=== PATIENT | female | born 1950 | race Hispanic/Latino ===

== ENCOUNTER 2022-05-12 09:46 | Inpatient (IN) | payer MEDICARE, OTHER ==
[~2022-05-12] VITALS: Ht 154.9 cm; Wt 81.6 kg
[2022-05-12] VITALS (22 sets, daily range): BP systolic 90–214; BP diastolic 51–88
[~2022-05-12 09:46] MED LIST: KETAMINE HCL 100 MG/ML 5ML VIAL IJ ONE
[2022-05-12] MEDS ORDERED: SUCCINYLCHOLINE 200MG/10ML SYR ONE (10:29)
[2022-05-12] MEDS ORDERED: HEPARIN 10,000 UNIT/10ML (1,000 UNIT/ML) VIAL ONE ×2 (10:29→12:10)
[2022-05-12] MEDS ORDERED: FENTANYL CITRATE PF 50 MCG/1 ML 5ML AMP IV ONE (10:29)
[2022-05-12] MEDS ORDERED: NITROGLYCERIN 50MG VIAL ONE (10:29)
[2022-05-12] MEDS ORDERED: PROPOFOL 10 MG/ML 20ML VIAL IV ONE ×2 (10:29→10:41)
[2022-05-12] MEDS ORDERED: MIDAZOLAM HCL 1 MG/ML 2ML VIAL ONE (10:29)
[2022-05-12] MEDS ORDERED: IOHEXOL 350 MG/ML 100ML INFUS..BTL IV ONE (10:29)
[2022-05-12] MEDS ORDERED: HEPARIN 1,000 UNIT VIAL ONE (10:29)
[2022-05-12] MEDS ORDERED: ROCURONIUM 10MG/1ML SYR 10 MG/ML ML ONE (10:29)
[2022-05-12] MEDS ORDERED: EPINEPHRINE PF 1MG (1:1,000) 10 MG in 0.9% NACL 250ML 240 ML IV PRN (10:30)
[2022-05-12] MEDS ORDERED: AMINOCAPROIC ACID 5,000MG VIAL 15,000 MG in 0.9% NACL 500ML IV.SOLN 420 ML IV PRN (10:30)
[2022-05-12] MEDS ORDERED: NOREPINEPHRINE BITARTRATE 8 MG in 0.9% NACL 250ML 250 ML IV PRN (10:30)
[2022-05-12] MEDS ORDERED: ONDANSETRON 4MG INJ ONE (10:34)
[2022-05-12] MEDS ORDERED: ROCURONIUM BROMIDE 10MG/1ML 5ML VL ONE ×4 (10:41→14:41)
[2022-05-12] MEDS ORDERED: MORPHINE 4 MG SYG IM PRN (11:00)
[2022-05-12] MEDS ORDERED: VASOPRESSIN 20 UNITS/ML 1ML VIAL ONE (11:00)
[2022-05-12] MEDS ORDERED: ONDANSETRON 4MG INJ IVP PRN (11:00)
[2022-05-12] MEDS ORDERED: MORPHINE 2 MG SYG IVP PRN (11:00)
[2022-05-12] MEDS ORDERED: ACETAMINOPHEN 325 MG TAB PO PRN (11:00)
[2022-05-12] MEDS ORDERED: ACETAMINOPHEN 650 MG SUPPOSITORY RC PRN (11:00)
[2022-05-12] MEDS ORDERED: CEFAZOLIN SODIUM 1 GM VIAL ONE ×2 (11:02→14:09)
[2022-05-12 11:09] LABS: HEMATOCRIT 28.4 % (36-48); MEAN CORPUSCULAR HEMOGLOBIN 27.7 pg (27.0-33.0); MEAN CORPUSCULAR HGB CONC 33.1 g/dL (32.0-36.0); MEAN CORPUSCULAR VOLUME 83.8 fL (79-99); RED BLOOD CELL COUNT(AUTO) 3.39 MIL/uL (4.00-5.50); RED CELL DISTRIBUTION WIDTH 15.5 % (11.0-15.5); WHITE BLOOD COUNT (AUTO) 17.8 K/uL (4.8-10.8)
[2022-05-12 11:19] LABS: ALBUMIN 2.3 g/dL (3.5-5.0); CREATININE 1.3 mg/dL (0.5-1.5); POTASSIUM 3.6 mmol/L (3.5-5.1); TOTAL PROTEIN, SERUM 4.8 g/dL (6.0-8.3)
[2022-05-12] MEDS ORDERED: SODIUM BICARB 50MEQ 50ML VIAL 50 ML ONE ×7 (11:22→18:21)
[2022-05-12 11:24] LABS: ABG BASE EXCESS -19.7 mmol/L (-2.0-3.0); ABG HCO3 9.7 mmol/L (21.0-28.0); ABG PCO2 36 mmHg (32-45)
[2022-05-12 11:47] LABS: INR 1.09 (0.85-1.15); PROTHROMBIN TIME 11.8 SEC (9.6-11.6)
[2022-05-12 11:48] LABS: PARTIAL THROMBOPLASTIN TIME 52.1 SEC (26.3-35.5)
[2022-05-12 11:56] LABS: ABG BASE EXCESS -9.4 mmol/L (-2.0-3.0); ABG HCO3 17.9 mmol/L (21.0-28.0); ABG OXYGEN SATURATION 98.9 % (95.0-99.0); ABG PCO2 45 mmHg (32-45)
[2022-05-12 12:28] LABS: ABG BASE EXCESS -0.9 mmol/L (-2.0-3.0); ABG HCO3 22.5 mmol/L (21.0-28.0); ABG OXYGEN SATURATION 98.7 % (95.0-99.0); ABG PCO2 32 mmHg (32-45)
[2022-05-12] MEDS ORDERED: FENTANYL CITRATE PF 50 MCG/1 ML 2ML VIAL ONE ×2 (13:20→14:43)
[2022-05-12 13:27] LABS: ABG BASE EXCESS -6.7 mmol/L (-2.0-3.0); ABG HCO3 18.9 mmol/L (21.0-28.0); ABG PCO2 38 mmHg (32-45)
[2022-05-12] MEDS ORDERED: MORPHINE 5 MG/ML VIAL (5MG OR GREATER DOSE) IV PRN (14:00)
[2022-05-12] MEDS ORDERED: DEXTROSE 50%-WATER 50 ML DISP.SYRIN IV PRN (14:00)
[2022-05-12] MEDS ORDERED: 0.9%NACL 1000ML 1,000 ML IV SCH (14:00)
[2022-05-12] MEDS ORDERED: GLUCAGON 1MG KIT 1 MG ML IM PRN (14:00)
[2022-05-12] MEDS ORDERED: NITROGLYCERIN 50MG/D5W 250ML 250 BOT IV SCH (14:00)
[2022-05-12] MEDS ORDERED: LIDOCAINE HCL-MPF 1% 2ML VIAL IV PRN (14:00)
[2022-05-12] MEDS ORDERED: NOREPINEPHRIN 4MG/NS 250ML 250 ML IV SCH (14:00)
[2022-05-12] MEDS ORDERED: PROTAMINE SULFATE 10 MG/ML 25ML VIAL IV ONE (14:19)
[2022-05-12 14:43] LABS: ABG BASE EXCESS -3.6 mmol/L (-2.0-3.0); ABG HCO3 23.3 mmol/L (21.0-28.0); ABG OXYGEN SATURATION 98.8 % (95.0-99.0); ABG PCO2 50 mmHg (32-45)
[2022-05-12] MEDS ORDERED: NITROGLYCERIN 1GM OINT 1 INCH/1GM TD ONE (15:00)
[2022-05-12] MEDS: NITROGLYCERIN 1GM OINT 1 INCH/1GM TD SCH ×2 (15:30→20:35)
[2022-05-12] MEDS ORDERED: PROPOFOL 1000 MG/100 ML IV PRN (15:30)
[2022-05-12] MEDS ORDERED: FENTANYL 2500MCG+NS 250ML IV.SOLN IV SCH (15:30)
[2022-05-12] MEDS ORDERED: PROPOFOL 1000 MG/100 ML 100 ML IV ONE (15:35)
[2022-05-12] MEDS ORDERED: FENTANYL 2500MCG+NS 250ML 250 ML IV ONE (15:35)
[2022-05-12 15:54] LABS: BASOPHILS % (AUTO) 0.4 % (0.0-5.0); EOSINOPHILS % (AUTO) 0.5 % (0.0-8.0); LYMPHOCYTES % (AUTO) 11.1 % (21.0-51.0); MEAN CORPUSCULAR HEMOGLOBIN 28.2 pg (27.0-33.0); MEAN CORPUSCULAR HGB CONC 35.9 g/dL (32.0-36.0); MEAN CORPUSCULAR VOLUME 78.6 fL (79-99); MONOCYTES % (AUTO) 7.9 % (3.0-13.0); NEUTROPHILS % (AUTO) 75.9 % (40.0-77.0); PLATELET COUNT (AUTO) 124 K/uL (130-400); RED BLOOD CELL COUNT(AUTO) 3.69 MIL/uL (4.00-5.50); RED CELL DISTRIBUTION WIDTH 14.6 % (11.0-15.5); WHITE BLOOD COUNT (AUTO) 18.6 K/uL (4.8-10.8)
[2022-05-12 16:15] LABS: ALBUMIN 1.9 g/dL (3.5-5.0); CREATININE 1.2 mg/dL (0.5-1.5); MAGNESIUM 1.5 mg/dL (1.80-2.40); POTASSIUM 3.8 mmol/L (3.5-5.1)
[2022-05-12] MEDS: INSULIN HUMULIN R 100 UNIT/ML 3ML SQ SCH ×2 (16:30→20:36)
[2022-05-12 16:34] LABS: ABG BASE EXCESS -2.1 mmol/L (-2.0-3.0); ABG HCO3 21.2 mmol/L (21.0-28.0); ABG OXYGEN SATURATION 98.5 % (95.0-99.0); ABG PCO2 32 mmHg (32-45)
[2022-05-12] MEDS ORDERED: SODIUM BICARB 50MEQ 50ML VIAL IV STA (17:58)
[2022-05-12] MEDS ORDERED: CALCIUM GLUC 1GM/10ML VIAL ONE (18:22)
[2022-05-12 18:23] LABS: INR 1.1 (0.85-1.15); PROTHROMBIN TIME 11.9 SEC (9.6-11.6)
[2022-05-12 18:24] LABS: PARTIAL THROMBOPLASTIN TIME 27.6 SEC (26.3-35.5)
[2022-05-12] MEDS ORDERED: CALCIUM GLUC 1GM 1 GM in 0.9%NACL 100ML 100 ML IV ONE (18:45)
[2022-05-12] MEDS: CLOPIDOGREL 75MG TAB PO SCH (20:34)
[2022-05-12] MEDS: CEFAZOLIN SODIUM 1 GM VIAL IVP SCH (20:34)
[2022-05-12] MEDS: ASPIRIN 81 MG EC TAB PO SCH (20:34)
[2022-05-12 20:43] LABS: ABG HCO3 25.9 mmol/L (21.0-28.0); ABG OXYGEN SATURATION 98.6 % (95.0-99.0); ABG PCO2 34 mmHg (32-45)
[2022-05-12 20:57] LABS: HEMATOCRIT 33.9 % (36-48)
[2022-05-12] MEDS ORDERED: POTASSIUM CHLORIDE 20MEQ/100ML 100 ML IV PRN (22:00)
[2022-05-12] MEDS: POTASSIUM CHLORIDE 20MEQ/100ML 100 ML IV PRN (22:05)
[2022-05-12] MEDS ORDERED: 0.9%NACL 50ML IV SCH (23:00)
[2022-05-12] MEDS: CALCIUM GLUC 1GM/10ML VIAL IVPB SCH (23:27)
[2022-05-13] VITALS (118 sets, daily range): BP systolic 0–167; BP diastolic 0–69
[2022-05-13] MEDS: POTASSIUM CHLORIDE 20MEQ/100ML 100 ML IV PRN ×3 (00:09→17:58)
[2022-05-13 01:00] LABS: HEMATOCRIT 32.7 % (36-48); MEAN CORPUSCULAR HEMOGLOBIN 28.3 pg (27.0-33.0); MEAN CORPUSCULAR HGB CONC 36.4 g/dL (32.0-36.0); MEAN CORPUSCULAR VOLUME 77.9 fL (79-99); RED BLOOD CELL COUNT(AUTO) 4.2 MIL/uL (4.00-5.50); RED CELL DISTRIBUTION WIDTH 14.6 % (11.0-15.5); WHITE BLOOD COUNT (AUTO) 19.3 K/uL (4.8-10.8)
[2022-05-13 01:19] LABS: ABG BASE EXCESS -2.7 mmol/L (-2.0-3.0); ABG HCO3 20.1 mmol/L (21.0-28.0); ABG OXYGEN SATURATION 98.2 % (95.0-99.0); ABG PCO2 29 mmHg (32-45)
[2022-05-13] MEDS ORDERED: CALCIUM GLUC 1GM 1 GM in 0.9%NACL 50ML 50 ML IV PRN (01:30)
[2022-05-13] MEDS ORDERED: SODIUM BICARB 50MEQ 50ML VIAL IV PRN (01:30)
[2022-05-13] MEDS: CALCIUM GLUC 1GM/10ML VIAL IVPB SCH ×3 (01:41→11:42)
[2022-05-13 02:29] LABS: ABG BASE EXCESS 3.5 mmol/L (-2.0-3.0); ABG HCO3 26.9 mmol/L (21.0-28.0); ABG OXYGEN SATURATION 97.9 % (95.0-99.0); ABG PCO2 37 mmHg (32-45)
[2022-05-13] MEDS: CEFAZOLIN SODIUM 1 GM VIAL IVP SCH (02:33)
[2022-05-13] MEDS: NITROGLYCERIN 1GM OINT 1 INCH/1GM TD SCH ×4 (03:18→20:32)
[2022-05-13 03:47] LABS: BASOPHILS % (AUTO) 0.2 % (0.0-5.0); HEMATOCRIT 32.5 % (36-48); LYMPHOCYTES % (AUTO) 11.2 % (21.0-51.0); MEAN CORPUSCULAR HGB CONC 36.3 g/dL (32.0-36.0); MONOCYTES % (AUTO) 8.7 % (3.0-13.0); NEUTROPHILS % (AUTO) 78.9 % (40.0-77.0); NUCLEATED RED BLOOD CELLS 0.1 % (0.0-0.19); PLATELET COUNT (AUTO) 176 K/uL (130-400); RED BLOOD CELL COUNT(AUTO) 4.22 MIL/uL (4.00-5.50); RED CELL DISTRIBUTION WIDTH 14.6 % (11.0-15.5); WHITE BLOOD COUNT (AUTO) 18.9 K/uL (4.8-10.8)
[2022-05-13 03:59] LABS: ALBUMIN 2.4 g/dL (3.5-5.0); CREATININE 1.6 mg/dL (0.5-1.5); MAGNESIUM 1.7 mg/dL (1.80-2.40); PHOSPHORUS 4.7 mg/dL (2.5-4.9); POTASSIUM 4.4 mmol/L (3.5-5.1); TOTAL PROTEIN, SERUM 5.2 g/dL (6.0-8.3)
[2022-05-13 04:02] LABS: PROTHROMBIN TIME 10.9 SEC (9.6-11.6)
[2022-05-13 04:03] LABS: PARTIAL THROMBOPLASTIN TIME 22.5 SEC (26.3-35.5)
[2022-05-13] MEDS ORDERED: ALBUMIN (HUMAN) 5% 250 ML IV ONE (04:07)
[2022-05-13] MEDS ORDERED: ALBUMIN (HUMAN) 5% 500 ML IV SCH (04:30)
[2022-05-13] MEDS: MAGNESIUM 2GM PREMIX 50ML 50 ML IV PRN (06:27)
[2022-05-13] MEDS: INSULIN HUMULIN R 100 UNIT/ML 3ML SQ SCH ×4 (06:37→20:32)
[2022-05-13 07:01] LABS: ABG BASE EXCESS 3.8 mmol/L (-2.0-3.0); ABG HCO3 26.8 mmol/L (21.0-28.0); ABG OXYGEN SATURATION 95.7 % (95.0-99.0); ABG PCO2 35 mmHg (32-45)
[2022-05-13] MEDS ORDERED: FUROSEMIDE 40MG VIAL ONE (07:14)
[2022-05-13] MEDS ORDERED: FUROSEMIDE 20MG VIAL IV SCH (08:00)
[2022-05-13 08:35] LABS: CHOLESTEROL 118 mg/dL (<200); HDL CHOLESTEROL 34 mg/dL (35-85); LDL DIRECT 57 mg/dL (0-99); TRIGLYCERIDES 283 mg/dL (30-200)
[2022-05-13] MEDS: ASPIRIN 81 MG EC TAB PO SCH (08:35)
[2022-05-13] MEDS: PANTOPRAZOLE 40 MG/VIAL IVP SCH (08:35)
[2022-05-13] MEDS ORDERED: ASPIRIN 81 MG EC TAB PO SCH (09:00)
[2022-05-13] MEDS ORDERED: ATORVASTATIN 40 MG TABLET PO SCH (10:00)
[2022-05-13 10:08] LABS: ABG BASE EXCESS 6.1 mmol/L (-2.0-3.0); ABG HCO3 29.5 mmol/L (21.0-28.0); ABG OXYGEN SATURATION 95.1 % (95.0-99.0); ABG PCO2 38 mmHg (32-45)
[2022-05-13] MEDS ORDERED: METF500S9 PO (10:51)
[2022-05-13] MEDS ORDERED: ATOR40TA71 PO (10:54)
[2022-05-13] MEDS: ONDANSETRON 4MG INJ IV PRN ×2 (11:42→17:58)
[2022-05-13] MEDS ORDERED: SODIUM CHLORIDE 3% FOR INHALATION 4 ML/AMP VIAL.NEB IH ONE (12:03)
[2022-05-13 12:09] LABS: ABG BASE EXCESS 8.3 mmol/L (-2.0-3.0); ABG HCO3 31.8 mmol/L (21.0-28.0); ABG OXYGEN SATURATION 96.3 % (95.0-99.0); ABG PCO2 40 mmHg (32-45)
[2022-05-13] MEDS: ZOSYN 3.375GM +NS 50ML IV SCH (14:30)
[2022-05-13 14:40] LABS: MAGNESIUM 2.3 mg/dL (1.80-2.40); POTASSIUM 3.6 mmol/L (3.5-5.1)
[2022-05-13] MEDS ORDERED: TRAMADOL HCL 50 MG TABLET PO SCH (15:30)
[2022-05-13] MEDS: 0.9%NACL 1000ML 1,000 ML IV SCH (15:51)
[2022-05-13] MEDS: MORPHINE 4 MG SYG IV PRN ×2 (18:50→23:31)
[2022-05-13] MEDS ORDERED: TRAMADOL HCL 50 MG TABLET PO PRN (19:00)
[2022-05-13] MEDS: ATORVASTATIN 40 MG TABLET PO SCH (20:16)
[2022-05-13] MEDS: CLOPIDOGREL 75MG TAB PO SCH (20:16)
[2022-05-14] VITALS (99 sets, daily range): BP systolic 115–191; BP diastolic 43–67
[2022-05-14] MEDS: 0.9%NACL 1000ML 1,000 ML IV SCH ×2 (01:06→11:00)
[2022-05-14] MEDS: ZOSYN 3.375GM +NS 50ML IV SCH ×2 (01:06→14:02)
[2022-05-14] MEDS ORDERED: SODIUM CHLORIDE 3% FOR INHALATION 4 ML/AMP VIAL.NEB IH ONE ×2 (02:25→06:33)
[2022-05-14] MEDS: HYDRALAZINE 20MG/ML VIAL IV PRN (03:50)
[2022-05-14] MEDS: NITROGLYCERIN 1GM OINT 1 INCH/1GM TD SCH ×4 (03:50→22:21)
[2022-05-14] MEDS ORDERED: ACETAMINOPHEN 325 MG TAB PO PRN (04:00)
[2022-05-14 04:32] LABS: BASOPHILS % (AUTO) 0.2 % (0.0-5.0); HEMATOCRIT 22.7 % (36-48); MEAN CORPUSCULAR HGB CONC 34.4 g/dL (32.0-36.0); MEAN CORPUSCULAR VOLUME 81.4 fL (79-99); MONOCYTES % (AUTO) 8.1 % (3.0-13.0); NEUTROPHILS % (AUTO) 82.8 % (40.0-77.0); PLATELET COUNT (AUTO) 119 K/uL (130-400); RED BLOOD CELL COUNT(AUTO) 2.79 MIL/uL (4.00-5.50); RED CELL DISTRIBUTION WIDTH 15.6 % (11.0-15.5); WHITE BLOOD COUNT (AUTO) 19.2 K/uL (4.8-10.8)
[2022-05-14 04:45] LABS: ALBUMIN 2.6 g/dL (3.5-5.0); CREATININE 1.2 mg/dL (0.5-1.5); MAGNESIUM 2.2 mg/dL (1.80-2.40); POTASSIUM 3.4 mmol/L (3.5-5.1); TOTAL PROTEIN, SERUM 5.4 g/dL (6.0-8.3)
[2022-05-14] MEDS ORDERED: FUROSEMIDE 40MG VIAL IV STA (05:11)
[2022-05-14] MEDS: POTASSIUM CHLORIDE 20MEQ/100ML 100 ML IV PRN (05:26)
[2022-05-14] MEDS: ESMOLOL HCL 2500 MG/NACL 250 ML IV PRN ×2 (07:21→12:05)
[2022-05-14] MEDS: INSULIN HUMULIN R 100 UNIT/ML 3ML SQ SCH ×4 (07:30→21:00)
[2022-05-14] MEDS ORDERED: LIDOCAINE HCL 1% 20 ML VIAL ONE (07:39)
[2022-05-14] MEDS ORDERED: NITROGLYCERIN 50MG VIAL ONE (07:39)
[2022-05-14] MEDS ORDERED: IODIXANOL 320 MG/ML 100 ML VIAL ONE (07:39)
[2022-05-14] MEDS ORDERED: MEPERIDINE-PF 25 MG/ML SYG ONE (07:40)
[2022-05-14] MEDS ORDERED: MIDAZOLAM HCL 1 MG/ML 2ML VIAL ONE (07:40)
[2022-05-14 07:45] LABS: ABG BASE EXCESS 5.5 mmol/L (-2.0-3.0); ABG HCO3 29.7 mmol/L (21.0-28.0); ABG OXYGEN SATURATION 98.3 % (95.0-99.0); ABG PCO2 42 mmHg (32-45)
[2022-05-14] MEDS ORDERED: IOHEXOL 350 MG/ML 100ML INFUS..BTL IV ONE (08:48)
[2022-05-14] MEDS ORDERED: ENOXAPARIN SODIUM 30 MG/0.3 ML SQ SCH (09:00)
[2022-05-14] MEDS: ASPIRIN 81 MG EC TAB PO SCH (09:00)
[2022-05-14 10:01] LABS: BASOPHILS % (AUTO) 0.2 % (0.0-5.0); HEMATOCRIT 25.6 % (36-48); MEAN CORPUSCULAR HEMOGLOBIN 28.6 pg (27.0-33.0); MEAN CORPUSCULAR HGB CONC 35.2 g/dL (32.0-36.0); MEAN CORPUSCULAR VOLUME 81.3 fL (79-99); MONOCYTES % (AUTO) 8.5 % (3.0-13.0); NEUTROPHILS % (AUTO) 82.8 % (40.0-77.0); PLATELET COUNT (AUTO) 111 K/uL (130-400); RED BLOOD CELL COUNT(AUTO) 3.15 MIL/uL (4.00-5.50); RED CELL DISTRIBUTION WIDTH 15.6 % (11.0-15.5); WHITE BLOOD COUNT (AUTO) 17.1 K/uL (4.8-10.8)
[2022-05-14] MEDS: PANTOPRAZOLE 40 MG/VIAL IVP SCH (10:02)
[2022-05-14] MEDS: FUROSEMIDE 20MG VIAL IV SCH ×2 (10:03→22:15)
[2022-05-14 10:17] LABS: INR 1.05 (0.85-1.15); PROTHROMBIN TIME 11.4 SEC (9.6-11.6)
[2022-05-14 10:18] LABS: PARTIAL THROMBOPLASTIN TIME 31.8 SEC (26.3-35.5)
[2022-05-14 13:11] LABS: ABG BASE EXCESS 5.5 mmol/L (-2.0-3.0); ABG HCO3 30.5 mmol/L (21.0-28.0); ABG OXYGEN SATURATION 96.6 % (95.0-99.0); ABG PCO2 47 mmHg (32-45)
[2022-05-14 15:40] LABS: HEMATOCRIT 25.2 % (36-48)
[2022-05-14] MEDS ORDERED: ASPIRIN 81MG CHEW TAB PO ONE (22:00)
[2022-05-14] MEDS ORDERED: METOPROLOL TARTRATE 50 MG TAB PO ONE (22:00)
[2022-05-14] MEDS: ATORVASTATIN 40 MG TABLET PO SCH (22:11)
[2022-05-14] MEDS: CLOPIDOGREL 75MG TAB PO SCH (22:11)
[2022-05-14] MEDS: KCL 20 MEQ ERTAB PO PRN (22:21)
[2022-05-14 22:38] LABS: MAGNESIUM 2.4 mg/dL (1.80-2.40); POTASSIUM 3.5 mmol/L (3.5-5.1)
[2022-05-15] VITALS (99 sets, daily range): BP systolic 85–174; BP diastolic 40–112
[2022-05-15] MEDS: ZOSYN 3.375GM +NS 50ML IV SCH ×3 (00:42→16:08)
[2022-05-15 04:46] LABS: HEMATOCRIT 24.4 % (36-48); MEAN CORPUSCULAR HEMOGLOBIN 28.3 pg (27.0-33.0); MEAN CORPUSCULAR VOLUME 83.3 fL (79-99); RED BLOOD CELL COUNT(AUTO) 2.93 MIL/uL (4.00-5.50); RED CELL DISTRIBUTION WIDTH 15.7 % (11.0-15.5); WHITE BLOOD COUNT (AUTO) 17.1 K/uL (4.8-10.8)
[2022-05-15 05:08] LABS: ALBUMIN 2.4 g/dL (3.5-5.0); MAGNESIUM 2.2 mg/dL (1.80-2.40); PHOSPHORUS 2.7 mg/dL (2.5-4.9); POTASSIUM 3.4 mmol/L (3.5-5.1)
[2022-05-15] MEDS: NITROGLYCERIN 1GM OINT 1 INCH/1GM TD SCH ×4 (05:22→21:25)
[2022-05-15] MEDS: ESMOLOL HCL 2500 MG/NACL 250 ML IV PRN ×3 (06:14→18:24)
[2022-05-15] MEDS: INSULIN HUMULIN R 100 UNIT/ML 3ML SQ SCH ×4 (06:22→21:00)
[2022-05-15] MEDS: METOPROLOL TARTRATE 50 MG TAB PO SCH ×2 (08:45→21:03)
[2022-05-15] MEDS: FUROSEMIDE 20MG VIAL IV SCH ×2 (08:45→21:03)
[2022-05-15] MEDS: PANTOPRAZOLE 40 MG/VIAL IVP SCH (08:45)
[2022-05-15] MEDS: ASPIRIN 81 MG EC TAB PO SCH (08:45)
[2022-05-15] MEDS ORDERED: LISINOPRIL 10 MG TABLET PO SCH (09:00)
[2022-05-15] MEDS: POTASSIUM CHLORIDE 10% ELIXIR 20 MEQ/15 ML UDCUP PO PRN (10:47)
[2022-05-15] MEDS: AMLODIPINE 5 MG TAB PO SCH (10:47)
[2022-05-15] MEDS: HYDRALAZINE 20MG/ML VIAL IV PRN (14:05)
[2022-05-15 18:08] LABS: HEMATOCRIT 24.3 % (36-48)
[2022-05-15 20:35] LABS: MAGNESIUM 2.3 mg/dL (1.80-2.40); POTASSIUM 3.3 mmol/L (3.5-5.1)
[2022-05-15] MEDS: ATORVASTATIN 40 MG TABLET PO SCH (21:03)
[2022-05-15] MEDS: CLOPIDOGREL 75MG TAB PO SCH (21:04)
[2022-05-15] MEDS: POTASSIUM CHLORIDE 20MEQ/100ML 100 ML IV PRN ×2 (21:24→23:46)
[2022-05-16] VITALS (67 sets, daily range): BP systolic 107–184; BP diastolic 36–160
[2022-05-16] MEDS: ZOSYN 3.375GM +NS 50ML IV SCH ×3 (01:11→16:31)
[2022-05-16 03:56] LABS: HEMATOCRIT 25.9 % (36-48); MEAN CORPUSCULAR HEMOGLOBIN 27.8 pg (27.0-33.0); RED BLOOD CELL COUNT(AUTO) 3.16 MIL/uL (4.00-5.50); RED CELL DISTRIBUTION WIDTH 15.5 % (11.0-15.5)
[2022-05-16 04:13] LABS: ALBUMIN 2.4 g/dL (3.5-5.0); CREATININE 0.9 mg/dL (0.5-1.5); MAGNESIUM 2.3 mg/dL (1.80-2.40); PHOSPHORUS 2.6 mg/dL (2.5-4.9); POTASSIUM 3.3 mmol/L (3.5-5.1); TOTAL PROTEIN, SERUM 6.4 g/dL (6.0-8.3)
[2022-05-16] MEDS: HYDRALAZINE 20MG/ML VIAL IV PRN ×3 (04:36→23:53)
[2022-05-16] MEDS: NITROGLYCERIN 1GM OINT 1 INCH/1GM TD SCH ×4 (05:46→22:38)
[2022-05-16] MEDS: ESMOLOL HCL 2500 MG/NACL 250 ML IV PRN (06:43)
[2022-05-16] MEDS: INSULIN HUMULIN R 100 UNIT/ML 3ML SQ SCH ×4 (07:30→20:50)
[2022-05-16] MEDS: POTASSIUM CHLORIDE 20MEQ/100ML 100 ML IV PRN ×5 (09:18→23:53)
[2022-05-16] MEDS: ASPIRIN 81 MG EC TAB PO SCH (09:18)
[2022-05-16] MEDS: LISINOPRIL 10 MG TABLET PO SCH ×2 (09:18→20:50)
[2022-05-16] MEDS: AMLODIPINE 5 MG TAB PO SCH (09:18)
[2022-05-16] MEDS: METOPROLOL TARTRATE 50 MG TAB PO SCH ×2 (09:18→20:50)
[2022-05-16] MEDS: PANTOPRAZOLE 40 MG TAB DR PO SCH (09:19)
[2022-05-16] MEDS ORDERED: ALBUTEROL 0.083% 2.5 MG/3 ML INH IH PRN (10:00)
[2022-05-16] MEDS: FUROSEMIDE 20MG VIAL IV SCH (16:42)
[2022-05-16 17:07] LABS: HEMATOCRIT 28.1 % (36-48)
[2022-05-16] MEDS ORDERED: DICYCLOMINE HCL 20 MG TAB PO PRN (18:30)
[2022-05-16] MEDS: CLOPIDOGREL 75MG TAB PO SCH (20:49)
[2022-05-16] MEDS: ATORVASTATIN 40 MG TABLET PO SCH (20:50)
[2022-05-17] VITALS (65 sets, daily range): BP systolic 113–187; BP diastolic 41–71
[2022-05-17] MEDS: ZOSYN 3.375GM +NS 50ML IV SCH ×3 (01:08→16:22)
[2022-05-17] MEDS: FUROSEMIDE 20MG VIAL IV SCH ×3 (01:08→16:24)
[2022-05-17] MEDS: NITROGLYCERIN 1GM OINT 1 INCH/1GM TD SCH (03:42)
[2022-05-17 05:13] LABS: HEMATOCRIT 28.1 % (36-48); MEAN CORPUSCULAR HEMOGLOBIN 28.1 pg (27.0-33.0); MEAN CORPUSCULAR HGB CONC 33.8 g/dL (32.0-36.0); MEAN CORPUSCULAR VOLUME 83.1 fL (79-99); RED BLOOD CELL COUNT(AUTO) 3.38 MIL/uL (4.00-5.50); RED CELL DISTRIBUTION WIDTH 16.1 % (11.0-15.5); WHITE BLOOD COUNT (AUTO) 11.4 K/uL (4.8-10.8)
[2022-05-17 05:30] LABS: ALBUMIN 2.3 g/dL (3.5-5.0); CREATININE 0.9 mg/dL (0.5-1.5); MAGNESIUM 2.3 mg/dL (1.80-2.40); PHOSPHORUS 2.6 mg/dL (2.5-4.9); POTASSIUM 3.2 mmol/L (3.5-5.1); TOTAL PROTEIN, SERUM 6.7 g/dL (6.0-8.3)
[2022-05-17] MEDS: POTASSIUM CHLORIDE 20MEQ/100ML 100 ML IV PRN ×2 (05:51→08:34)
[2022-05-17] MEDS: INSULIN HUMULIN R 100 UNIT/ML 3ML SQ SCH ×4 (06:13→20:40)
[2022-05-17] MEDS: PANTOPRAZOLE 40 MG TAB DR PO SCH (08:35)
[2022-05-17] MEDS: AMLODIPINE 5 MG TAB PO SCH (08:35)
[2022-05-17] MEDS: METOPROLOL TARTRATE 50 MG TAB PO SCH ×2 (08:35→20:39)
[2022-05-17] MEDS: LISINOPRIL 10 MG TABLET PO SCH ×2 (08:35→20:39)
[2022-05-17] MEDS: ASPIRIN 81 MG EC TAB PO SCH (08:35)
[2022-05-17] MEDS: CLOPIDOGREL 75MG TAB PO SCH (20:38)
[2022-05-17] MEDS: ATORVASTATIN 40 MG TABLET PO SCH (20:38)
[2022-05-17] MEDS: BALSAM PERU/CASTOR OIL 60 GM TUBE TP SCH (20:41)
[2022-05-18] VITALS (7 sets, daily range): BP systolic 104–171; BP diastolic 49–97
[2022-05-18] MEDS: FUROSEMIDE 20MG VIAL IV SCH ×3 (00:59→16:30)
[2022-05-18] MEDS: ZOSYN 3.375GM +NS 50ML IV SCH ×3 (00:59→16:27)
[2022-05-18 03:50] LABS: BASOPHILS % (AUTO) 0.2 % (0.0-5.0); EOSINOPHILS % (AUTO) 0.4 % (0.0-8.0); HEMATOCRIT 28.7 % (36-48); MEAN CORPUSCULAR HEMOGLOBIN 28.1 pg (27.0-33.0); MEAN CORPUSCULAR HGB CONC 34.1 g/dL (32.0-36.0); MEAN CORPUSCULAR VOLUME 82.2 fL (79-99); MONOCYTES % (AUTO) 11.5 % (3.0-13.0); NEUTROPHILS % (AUTO) 78.3 % (40.0-77.0); PLATELET COUNT (AUTO) 257 K/uL (130-400); RED BLOOD CELL COUNT(AUTO) 3.49 MIL/uL (4.00-5.50); RED CELL DISTRIBUTION WIDTH 16.2 % (11.0-15.5); WHITE BLOOD COUNT (AUTO) 12.4 K/uL (4.8-10.8)
[2022-05-18 04:02] LABS: ALBUMIN 2.3 g/dL (3.5-5.0); CREATININE 0.8 mg/dL (0.5-1.5); MAGNESIUM 2.2 mg/dL (1.80-2.40); PHOSPHORUS 2.6 mg/dL (2.5-4.9); POTASSIUM 3.4 mmol/L (3.5-5.1); TOTAL PROTEIN, SERUM 6.7 g/dL (6.0-8.3)
[2022-05-18] MEDS: KCL 20 MEQ ERTAB PO PRN ×2 (05:45→08:59)
[2022-05-18] MEDS: INSULIN HUMULIN R 100 UNIT/ML 3ML SQ SCH ×4 (05:54→21:00)
[2022-05-18] MEDS: ASPIRIN 81 MG EC TAB PO SCH (08:58)
[2022-05-18] MEDS: METOPROLOL TARTRATE 50 MG TAB PO SCH ×2 (08:58→20:32)
[2022-05-18] MEDS: PANTOPRAZOLE 40 MG TAB DR PO SCH (08:59)
[2022-05-18] MEDS: LISINOPRIL 10 MG TABLET PO SCH ×2 (08:59→20:32)
[2022-05-18] MEDS: AMLODIPINE 5 MG TAB PO SCH (08:59)
[2022-05-18] MEDS: BALSAM PERU/CASTOR OIL 60 GM TUBE TP SCH ×3 (09:07→20:43)
[2022-05-18 17:54] LABS: APPEARANCE,URINE CLEAR (CLEAR); BILIRUBIN,URINE NEGATIVE (NEGATIVE); COLOR,URINE COLORLESS (YELLOW); GLUCOSE, URINE (UA) NEGATIVE (NEGATIVE); KETONES,URINE NEGATIVE (NEGATIVE); LEUKOCYTE ESTERASE ,URINE NEGATIVE Leu/uL (NEGATIVE); NITRATE,URINE NEGATIVE (NEGATIVE); PROTEIN,URINE NEGATIVE (NEGATIVE); UROBILINOGEN,URINE 0.2 mg/dL (0.2-1.0)
[2022-05-18 18:09] LABS: WBC,URINE 0-1 /HPF (0-1)
[2022-05-18] MEDS: ATORVASTATIN 40 MG TABLET PO SCH (20:31)
[2022-05-18] MEDS: AMITRIPTYLINE 25 MG TABLET PO SCH (20:31)
[2022-05-18] MEDS: CLOPIDOGREL 75MG TAB PO SCH (20:32)
[2022-05-19] MEDS: ZOSYN 3.375GM +NS 50ML IV SCH ×3 (00:32→16:55)
[2022-05-19] MEDS: FUROSEMIDE 20MG VIAL IV SCH ×3 (00:32→16:55)
[2022-05-19 03:26] VITALS: BP 125/64
[2022-05-19 04:50] LABS: BASOPHILS % (AUTO) 0.2 % (0.0-5.0); EOSINOPHILS % (AUTO) 0.2 % (0.0-8.0); HEMATOCRIT 28.9 % (36-48); LYMPHOCYTES % (AUTO) 9.4 % (21.0-51.0); MEAN CORPUSCULAR HEMOGLOBIN 27.6 pg (27.0-33.0); MEAN CORPUSCULAR HGB CONC 33.6 g/dL (32.0-36.0); MEAN CORPUSCULAR VOLUME 82.3 fL (79-99); MONOCYTES % (AUTO) 11.9 % (3.0-13.0); NEUTROPHILS % (AUTO) 77.2 % (40.0-77.0); PLATELET COUNT (AUTO) 288 K/uL (130-400); RED BLOOD CELL COUNT(AUTO) 3.51 MIL/uL (4.00-5.50); RED CELL DISTRIBUTION WIDTH 16.1 % (11.0-15.5); WHITE BLOOD COUNT (AUTO) 17.9 K/uL (4.8-10.8)
[2022-05-19 05:07] LABS: ALBUMIN 2.2 g/dL (3.5-5.0); CREATININE 0.8 mg/dL (0.5-1.5); POTASSIUM 3.1 mmol/L (3.5-5.1); TOTAL PROTEIN, SERUM 6.6 g/dL (6.0-8.3)
[2022-05-19] MEDS: KCL 20 MEQ ERTAB PO PRN (05:59)
[2022-05-19] MEDS: INSULIN HUMULIN R 100 UNIT/ML 3ML SQ SCH ×4 (07:17→21:00)
[2022-05-19 08:00] VITALS: BP 152/61
[2022-05-19] MEDS: METOPROLOL TARTRATE 50 MG TAB PO SCH ×2 (08:31→20:20)
[2022-05-19] MEDS: KCL 20 MEQ ERTAB PO SCH ×2 (08:31→11:52)
[2022-05-19] MEDS: POLYETHYLENE GLYCOL 3350 17 GM POWD.PACK PO SCH (08:32)
[2022-05-19] MEDS: LISINOPRIL 10 MG TABLET PO SCH ×2 (08:32→20:19)
[2022-05-19] MEDS: AMLODIPINE 5 MG TAB PO SCH (08:32)
[2022-05-19] MEDS: ASPIRIN 81 MG EC TAB PO SCH (08:32)
[2022-05-19] MEDS: PANTOPRAZOLE 40 MG TAB DR PO SCH (08:32)
[2022-05-19] MEDS: BALSAM PERU/CASTOR OIL 60 GM TUBE TP SCH ×3 (08:33→20:20)
[2022-05-19 11:08] VITALS: BP 100/63
[2022-05-19 16:00] VITALS: BP 118/46
[2022-05-19 17:42] LABS: MAGNESIUM 2.4 mg/dL (1.80-2.40); POTASSIUM 3.9 mmol/L (3.5-5.1)
[2022-05-19] MEDS: AMITRIPTYLINE 25 MG TABLET PO SCH (20:20)
[2022-05-19] MEDS: CLOPIDOGREL 75MG TAB PO SCH (20:20)
[2022-05-19] MEDS: ATORVASTATIN 40 MG TABLET PO SCH (20:20)
[2022-05-19 20:44] VITALS: BP 132/52
[2022-05-20 00:13] VITALS: BP 119/61
[2022-05-20] MEDS: ZOSYN 3.375GM +NS 50ML IV SCH ×3 (02:16→16:04)
[2022-05-20] MEDS: FUROSEMIDE 20MG VIAL IV SCH ×3 (02:17→16:04)
[2022-05-20 04:00] LABS: BASOPHILS % (AUTO) 0.2 % (0.0-5.0); EOSINOPHILS % (AUTO) 0.6 % (0.0-8.0); HEMATOCRIT 28.7 % (36-48); LYMPHOCYTES % (AUTO) 10.3 % (21.0-51.0); MEAN CORPUSCULAR HGB CONC 33.8 g/dL (32.0-36.0); MEAN CORPUSCULAR VOLUME 82.7 fL (79-99); MONOCYTES % (AUTO) 12.5 % (3.0-13.0); NEUTROPHILS % (AUTO) 74.9 % (40.0-77.0); PLATELET COUNT (AUTO) 368 K/uL (130-400); RED BLOOD CELL COUNT(AUTO) 3.47 MIL/uL (4.00-5.50); RED CELL DISTRIBUTION WIDTH 16.3 % (11.0-15.5); WHITE BLOOD COUNT (AUTO) 17.5 K/uL (4.8-10.8)
[2022-05-20 04:03] VITALS: BP 120/54
[2022-05-20 04:09] LABS: CREATININE 0.8 mg/dL (0.5-1.5); MAGNESIUM 2.4 mg/dL (1.80-2.40)
[2022-05-20] MEDS: INSULIN HUMULIN R 100 UNIT/ML 3ML SQ SCH ×4 (07:30→21:00)
[2022-05-20] MEDS: ASPIRIN 81 MG EC TAB PO SCH (08:13)
[2022-05-20] MEDS: PANTOPRAZOLE 40 MG TAB DR PO SCH (08:13)
[2022-05-20] MEDS: POLYETHYLENE GLYCOL 3350 17 GM POWD.PACK PO SCH (08:13)
[2022-05-20] MEDS: AMLODIPINE 5 MG TAB PO SCH (08:16)
[2022-05-20] MEDS: BALSAM PERU/CASTOR OIL 60 GM TUBE TP SCH ×3 (08:16→21:02)
[2022-05-20] MEDS: LISINOPRIL 10 MG TABLET PO SCH ×2 (08:17→21:01)
[2022-05-20] MEDS: METOPROLOL TARTRATE 50 MG TAB PO SCH ×2 (08:17→21:01)
[2022-05-20 08:30] VITALS: BP 142/71
[2022-05-20 09:56] LABS: INR 0.94 (0.85-1.15); PROTHROMBIN TIME 10.3 SEC (9.6-11.6)
[2022-05-20 12:18] VITALS: BP 113/52
[2022-05-20 16:30] VITALS: BP 146/68
[2022-05-20] MEDS: AMITRIPTYLINE 25 MG TABLET PO SCH (21:01)
[2022-05-20] MEDS: CLOPIDOGREL 75MG TAB PO SCH (21:01)
[2022-05-20] MEDS: ATORVASTATIN 40 MG TABLET PO SCH (21:01)
[2022-05-20] MEDS: ONDANSETRON 4MG INJ IV PRN (21:16)
[2022-05-20 21:36] VITALS: BP 142/64
[2022-05-21 00:50] VITALS: BP 137/69
[2022-05-21] MEDS: ZOSYN 3.375GM +NS 50ML IV SCH ×3 (02:13→16:29)
[2022-05-21] MEDS: FUROSEMIDE 20MG VIAL IV SCH (02:14)
[2022-05-21 04:33] VITALS: BP 116/93
[2022-05-21 05:41] LABS: BASOPHILS % (AUTO) 0.2 % (0.0-5.0); EOSINOPHILS % (AUTO) 0.5 % (0.0-8.0); HEMATOCRIT 28.9 % (36-48); LYMPHOCYTES % (AUTO) 6.7 % (21.0-51.0); MEAN CORPUSCULAR HEMOGLOBIN 27.9 pg (27.0-33.0); MEAN CORPUSCULAR HGB CONC 34.3 g/dL (32.0-36.0); MEAN CORPUSCULAR VOLUME 81.4 fL (79-99); MONOCYTES % (AUTO) 9.1 % (3.0-13.0); NEUTROPHILS % (AUTO) 82.6 % (40.0-77.0); PLATELET COUNT (AUTO) 475 K/uL (130-400); RED BLOOD CELL COUNT(AUTO) 3.55 MIL/uL (4.00-5.50); RED CELL DISTRIBUTION WIDTH 16.2 % (11.0-15.5); WHITE BLOOD COUNT (AUTO) 19.4 K/uL (4.8-10.8)
[2022-05-21 06:02] LABS: ALBUMIN 2.2 g/dL (3.5-5.0); CREATININE 1.6 mg/dL (0.5-1.5); POTASSIUM 3.8 mmol/L (3.5-5.1); TOTAL PROTEIN, SERUM 6.8 g/dL (6.0-8.3)
[2022-05-21] MEDS: INSULIN HUMULIN R 100 UNIT/ML 3ML SQ SCH ×4 (06:21→20:33)
[2022-05-21 08:00] VITALS: BP 144/67
[2022-05-21] MEDS: POLYETHYLENE GLYCOL 3350 17 GM POWD.PACK PO SCH (09:38)
[2022-05-21] MEDS: PANTOPRAZOLE 40 MG TAB DR PO SCH (09:39)
[2022-05-21] MEDS: METOPROLOL TARTRATE 50 MG TAB PO SCH ×2 (09:39→20:34)
[2022-05-21] MEDS: ASPIRIN 81 MG EC TAB PO SCH (09:39)
[2022-05-21] MEDS: LISINOPRIL 10 MG TABLET PO SCH ×2 (09:39→20:34)
[2022-05-21] MEDS: BALSAM PERU/CASTOR OIL 60 GM TUBE TP SCH ×3 (09:39→20:35)
[2022-05-21] MEDS: AMLODIPINE 5 MG TAB PO SCH (09:39)
[2022-05-21 11:23] VITALS: BP 154/56
[2022-05-21 16:06] VITALS: BP 118/45
[2022-05-21] MEDS: ONDANSETRON 4MG INJ IV PRN (18:17)
[2022-05-21] MEDS: CLOPIDOGREL 75MG TAB PO SCH (20:34)
[2022-05-21] MEDS: ATORVASTATIN 40 MG TABLET PO SCH (20:35)
[2022-05-21 21:42] VITALS: BP 141/60
[2022-05-22 00:14] VITALS: BP 124/53
[2022-05-22] MEDS: ZOSYN 3.375GM +NS 50ML IV SCH ×2 (00:54→08:06)
[2022-05-22 04:16] VITALS: BP 131/57
[2022-05-22 04:41] LABS: HEMATOCRIT 27.1 % (36-48); MEAN CORPUSCULAR HEMOGLOBIN 27.5 pg (27.0-33.0); MEAN CORPUSCULAR HGB CONC 33.9 g/dL (32.0-36.0); MEAN CORPUSCULAR VOLUME 81.1 fL (79-99); RED BLOOD CELL COUNT(AUTO) 3.34 MIL/uL (4.00-5.50); RED CELL DISTRIBUTION WIDTH 15.9 % (11.0-15.5); WHITE BLOOD COUNT (AUTO) 20.8 K/uL (4.8-10.8)
[2022-05-22 05:06] LABS: ALBUMIN 2.1 g/dL (3.5-5.0); MAGNESIUM 2.6 mg/dL (1.80-2.40); POTASSIUM 3.7 mmol/L (3.5-5.1); TOTAL PROTEIN, SERUM 6.6 g/dL (6.0-8.3)
[2022-05-22] MEDS ORDERED: 0.9% NACL 500ML IV.SOLN 500 ML IV SCH (06:00)
[2022-05-22] MEDS: INSULIN HUMULIN R 100 UNIT/ML 3ML SQ SCH ×4 (06:35→21:19)
[2022-05-22] MEDS: ASPIRIN 81 MG EC TAB PO SCH (08:06)
[2022-05-22] MEDS: POLYETHYLENE GLYCOL 3350 17 GM POWD.PACK PO SCH (08:06)
[2022-05-22] MEDS: AMLODIPINE 5 MG TAB PO SCH (08:06)
[2022-05-22] MEDS: PANTOPRAZOLE 40 MG TAB DR PO SCH (08:06)
[2022-05-22] MEDS: BALSAM PERU/CASTOR OIL 60 GM TUBE TP SCH ×3 (08:07→21:19)
[2022-05-22 08:09] VITALS: BP 155/69
[2022-05-22 10:57] VITALS: BP 129/54
[2022-05-22] MEDS: CEFEPIME HCL 2 GM VIAL IVP SCH ×2 (11:12→21:17)
[2022-05-22] MEDS: METOPROLOL TARTRATE 50 MG TAB PO SCH ×2 (11:13→21:18)
[2022-05-22] MEDS: 0.9%NACL 1000ML 1,000 ML IV SCH (14:02)
[2022-05-22 16:20] VITALS: BP 142/47
[2022-05-22 16:42] LABS: APPEARANCE,URINE CLEAR (CLEAR); BILIRUBIN,URINE NEGATIVE (NEGATIVE); COLOR,URINE YELLOW (YELLOW); GLUCOSE, URINE (UA) NEGATIVE (NEGATIVE); KETONES,URINE NEGATIVE (NEGATIVE); LEUKOCYTE ESTERASE ,URINE NEGATIVE Leu/uL (NEGATIVE); NITRATE,URINE NEGATIVE (NEGATIVE); OCCULT BLOOD,URINE LARGE (NEGATIVE); PROTEIN,URINE NEGATIVE (NEGATIVE); UROBILINOGEN,URINE 0.2 mg/dL (0.2-1.0)
[2022-05-22 16:46] LABS: CHLORIDE,URINE RANDOM 25 mmol/L (110-250); CREATININE,URINE RANDOM 41 mg/dL (30-135); POTASSIUM,URINE RANDOM 34 mmol/L (25-125); SODIUM,URINE RANDOM 28 mmol/l (40-220)
[2022-05-22 16:47] LABS: BACTERIA,URINE RARE /HPF (None Seen); MUCUS,URINE RARE LPF (None Seen); RBC,URINE 51-100 /HPF (0-1); SQUAMOUS EPITHELIAL CELL,UR RARE /HPF (0-2)
[2022-05-22 18:44] VITALS: BP 122/78
[2022-05-22] MEDS: METRONIDAZOLE 500MG/100ML BAG 100 ML IVPB SCH (21:17)
[2022-05-22] MEDS: ATORVASTATIN 40 MG TABLET PO SCH (21:18)
[2022-05-22] MEDS: CLOPIDOGREL 75MG TAB PO SCH (21:18)
[2022-05-23] VITALS (7 sets, daily range): BP systolic 114–150; BP diastolic 54–82
[2022-05-23] MEDS: 0.9%NACL 1000ML 1,000 ML IV SCH ×2 (02:20→10:40)
[2022-05-23 04:06] LABS: HEMATOCRIT 25.9 % (36-48); MEAN CORPUSCULAR HEMOGLOBIN 27.7 pg (27.0-33.0); MEAN CORPUSCULAR VOLUME 81.4 fL (79-99); PLATELET COUNT (AUTO) 515 K/uL (130-400); RED BLOOD CELL COUNT(AUTO) 3.18 MIL/uL (4.00-5.50); RED CELL DISTRIBUTION WIDTH 16.4 % (11.0-15.5)
[2022-05-23 04:31] LABS: ALBUMIN 1.9 g/dL (3.5-5.0); MAGNESIUM 2.6 mg/dL (1.80-2.40); POTASSIUM 3.3 mmol/L (3.5-5.1); TOTAL PROTEIN, SERUM 6.3 g/dL (6.0-8.3)
[2022-05-23 04:42] LABS: EOSINOPHILS % (MANUAL) 4 % (1-6); LYMPHOCYTES % (MANUAL) 9 % (22-44); MAN.DIFF COMMENT-IMPRESSION MANUAL DIFFERENTIAL; MONOCYTES % (MANUAL) 9 % (2-9); PLATELET MORPHOLOGY COMMENT INCREASED; SEGMENTED NEUTROPHILS % 78 % (40-70)
[2022-05-23 04:52] LABS: % IRON SATURATION 32.1 % (22-44)
[2022-05-23] MEDS: INSULIN HUMULIN R 100 UNIT/ML 3ML SQ SCH ×5 (05:57→21:03)
[2022-05-23] MEDS: KCL 20 MEQ ERTAB PO PRN (06:00)
[2022-05-23] MEDS: METRONIDAZOLE 500MG/100ML BAG 100 ML IVPB SCH ×3 (06:00→21:04)
[2022-05-23] MEDS: POLYETHYLENE GLYCOL 3350 17 GM POWD.PACK PO SCH (08:58)
[2022-05-23] MEDS: PANTOPRAZOLE 40 MG TAB DR PO SCH (08:59)
[2022-05-23] MEDS: METOPROLOL TARTRATE 50 MG TAB PO SCH ×2 (08:59→21:04)
[2022-05-23] MEDS: ASPIRIN 81 MG EC TAB PO SCH (08:59)
[2022-05-23] MEDS: Vitamin B Complex/Vit C/Folic Acid PO SCH (08:59)
[2022-05-23] MEDS: AMLODIPINE 5 MG TAB PO SCH (08:59)
[2022-05-23] MEDS: CEFEPIME HCL 2 GM VIAL IVP SCH ×2 (09:00→21:04)
[2022-05-23] MEDS: BALSAM PERU/CASTOR OIL 60 GM TUBE TP SCH ×3 (09:26→21:05)
[2022-05-23] MEDS ORDERED: LOPERAMIDE HCL 2 MG CAP PO SCH (16:30)
[2022-05-23] MEDS: POTASSIUM CHLORIDE 10% ELIXIR 20 MEQ/15 ML UDCUP PO PRN (16:38)
[2022-05-23 16:53] LABS: CREATININE 0.9 mg/dL (0.5-1.5); POTASSIUM 4.2 mmol/L (3.5-5.1); TOTAL PROTEIN, SERUM 6.9 g/dL (6.0-8.3)
[2022-05-23] MEDS: ATORVASTATIN 40 MG TABLET PO SCH (21:04)
[2022-05-23] MEDS: CLOPIDOGREL 75MG TAB PO SCH (21:04)
[2022-05-24] VITALS (7 sets, daily range): BP systolic 124–156; BP diastolic 50–64
[2022-05-24 03:58] LABS: HEMATOCRIT 25.3 % (36-48); MEAN CORPUSCULAR HEMOGLOBIN 27.8 pg (27.0-33.0); MEAN CORPUSCULAR HGB CONC 33.6 g/dL (32.0-36.0); MEAN CORPUSCULAR VOLUME 82.7 fL (79-99); RED BLOOD CELL COUNT(AUTO) 3.06 MIL/uL (4.00-5.50); RED CELL DISTRIBUTION WIDTH 16.6 % (11.0-15.5); WHITE BLOOD COUNT (AUTO) 15.8 K/uL (4.8-10.8)
[2022-05-24 04:18] LABS: ALBUMIN 1.9 g/dL (3.5-5.0); CREATININE 0.7 mg/dL (0.5-1.5); MAGNESIUM 2.3 mg/dL (1.80-2.40); POTASSIUM 3.9 mmol/L (3.5-5.1); TOTAL PROTEIN, SERUM 5.9 g/dL (6.0-8.3)
[2022-05-24] MEDS: 0.9%NACL 1000ML 1,000 ML IV SCH ×2 (04:47→14:10)
[2022-05-24] MEDS: INSULIN HUMULIN R 100 UNIT/ML 3ML SQ SCH ×4 (05:48→20:02)
[2022-05-24] MEDS: METRONIDAZOLE 500MG/100ML BAG 100 ML IVPB SCH ×3 (05:52→21:25)
[2022-05-24] MEDS: AMLODIPINE 5 MG TAB PO SCH (08:22)
[2022-05-24] MEDS: METOPROLOL TARTRATE 50 MG TAB PO SCH ×2 (08:22→21:25)
[2022-05-24] MEDS: PANTOPRAZOLE 40 MG TAB DR PO SCH (08:22)
[2022-05-24] MEDS: CEFEPIME HCL 2 GM VIAL IVP SCH ×2 (08:22→21:24)
[2022-05-24] MEDS: Vitamin B Complex/Vit C/Folic Acid PO SCH (08:23)
[2022-05-24] MEDS: ASPIRIN 81 MG EC TAB PO SCH (08:23)
[2022-05-24] MEDS: BALSAM PERU/CASTOR OIL 60 GM TUBE TP SCH ×3 (08:23→21:26)
[2022-05-24] MEDS: POLYETHYLENE GLYCOL 3350 17 GM POWD.PACK PO SCH (08:23)
[2022-05-24] MEDS: CLOPIDOGREL 75MG TAB PO SCH (21:25)
[2022-05-24] MEDS: ATORVASTATIN 40 MG TABLET PO SCH (21:25)
[2022-05-25] VITALS (7 sets, daily range): BP systolic 123–149; BP diastolic 44–68
[2022-05-25 03:32] LABS: HEMATOCRIT 26.9 % (36-48); MEAN CORPUSCULAR HEMOGLOBIN 27.9 pg (27.0-33.0); MEAN CORPUSCULAR HGB CONC 33.5 g/dL (32.0-36.0); MEAN CORPUSCULAR VOLUME 83.3 fL (79-99); RED BLOOD CELL COUNT(AUTO) 3.23 MIL/uL (4.00-5.50); RED CELL DISTRIBUTION WIDTH 16.7 % (11.0-15.5); WHITE BLOOD COUNT (AUTO) 15.7 K/uL (4.8-10.8)
[2022-05-25 03:43] LABS: CREATININE 0.6 mg/dL (0.5-1.5); MAGNESIUM 1.9 mg/dL (1.80-2.40)
[2022-05-25] MEDS: MAGNESIUM 2GM PREMIX 50ML 50 ML IV PRN (04:10)
[2022-05-25] MEDS: INSULIN HUMULIN R 100 UNIT/ML 3ML SQ SCH ×3 (06:00→20:59)
[2022-05-25] MEDS: METRONIDAZOLE 500MG/100ML BAG 100 ML IVPB SCH (06:37)
[2022-05-25] MEDS: AMLODIPINE 5 MG TAB PO SCH (08:45)
[2022-05-25] MEDS: PANTOPRAZOLE 40 MG TAB DR PO SCH (08:45)
[2022-05-25] MEDS: POLYETHYLENE GLYCOL 3350 17 GM POWD.PACK PO SCH (08:45)
[2022-05-25] MEDS: METOPROLOL TARTRATE 50 MG TAB PO SCH ×2 (08:45→21:00)
[2022-05-25] MEDS: ASPIRIN 81 MG EC TAB PO SCH (08:45)
[2022-05-25] MEDS: CEFEPIME HCL 2 GM VIAL IVP SCH (08:45)
[2022-05-25] MEDS: Vitamin B Complex/Vit C/Folic Acid PO SCH (08:45)
[2022-05-25] MEDS: BALSAM PERU/CASTOR OIL 60 GM TUBE TP SCH ×3 (08:46→21:01)
[2022-05-25] MEDS: 0.9%NACL 1000ML 1,000 ML IV SCH (10:21)
[2022-05-25] MEDS ORDERED: 0.9% NACL 250ML IV SCH (11:00)
[2022-05-25] MEDS ORDERED: VANCOMYCIN 1G VIAL IVPB SCH (11:00)
[2022-05-25] MEDS ORDERED: VANCOMYCIN PROTOCOL PER PHARMACY IV SCH (11:00)
[2022-05-25] MEDS: VANCOMYCIN 1G/250ML KIT 250 ML IV SCH ×2 (13:01→21:01)
[2022-05-25] MEDS: CLOPIDOGREL 75MG TAB PO SCH (21:00)
[2022-05-25] MEDS: ATORVASTATIN 40 MG TABLET PO SCH (21:00)
[2022-05-26 03:28] VITALS: BP 141/62
[2022-05-26 04:11] LABS: HEMATOCRIT 27.2 % (36-48); MEAN CORPUSCULAR HEMOGLOBIN 27.7 pg (27.0-33.0); MEAN CORPUSCULAR HGB CONC 33.5 g/dL (32.0-36.0); MEAN CORPUSCULAR VOLUME 82.9 fL (79-99); PLATELET COUNT (AUTO) 628 K/uL (130-400); RED BLOOD CELL COUNT(AUTO) 3.28 MIL/uL (4.00-5.50); RED CELL DISTRIBUTION WIDTH 16.4 % (11.0-15.5); WHITE BLOOD COUNT (AUTO) 15.2 K/uL (4.8-10.8)
[2022-05-26 04:28] LABS: CREATININE 0.6 mg/dL (0.5-1.5); PHOSPHORUS 2.4 mg/dL (2.5-4.9); POTASSIUM 3.9 mmol/L (3.5-5.1)
[2022-05-26 04:34] LABS: BASOPHILS % (MANUAL) 1 % (0-2); EOSINOPHILS % (MANUAL) 3 % (1-6); LYMPHOCYTES % (MANUAL) 12 % (22-44); MAN.DIFF COMMENT-IMPRESSION MANUAL DIFFERENTIAL; METAMYELOCYTES % 1 % (0-0); MONOCYTES % (MANUAL) 7 % (2-9); SEGMENTED NEUTROPHILS % 76 % (40-70)
[2022-05-26] MEDS: INSULIN HUMULIN R 100 UNIT/ML 3ML SQ SCH ×2 (05:33→11:30)
[2022-05-26 08:53] VITALS: BP 124/74
[2022-05-26] MEDS ORDERED: CHOLESTYRAMINE PACKET 4 GM PACKET PO SCH (09:00)
[2022-05-26] MEDS: POLYETHYLENE GLYCOL 3350 17 GM POWD.PACK PO SCH (09:00)
[2022-05-26] MEDS: AMLODIPINE 5 MG TAB PO SCH (09:51)
[2022-05-26] MEDS: VANCOMYCIN 1G/250ML KIT 250 ML IV SCH (09:51)
[2022-05-26] MEDS: PANTOPRAZOLE 40 MG TAB DR PO SCH (09:51)
[2022-05-26] MEDS: Vitamin B Complex/Vit C/Folic Acid PO SCH (09:51)
[2022-05-26] MEDS: METOPROLOL TARTRATE 50 MG TAB PO SCH (09:51)
[2022-05-26] MEDS: ASPIRIN 81 MG EC TAB PO SCH (09:51)
[2022-05-26] MEDS: BALSAM PERU/CASTOR OIL 60 GM TUBE TP SCH (09:53)
[2022-05-26 12:26] VITALS: BP 137/53
== END 2022-05-26 13:40 | DRG 268 ==
LOC: 2CH 10:01 → 2DH 05-17 15:35 → 4AH 05-21 10:12 → 2AH 05-22 17:55
PROVIDERS: ADMIT Internal Medicine Critical Care Medicine; ATTEND Internal Medicine Critical Care Medicine
PROC: 04V04DZ Restriction of Abdominal Aorta with Intraluminal Device, Percutaneous Endoscopic Approach (ICD-10-PCS; 2022-05-12)
PROC: 041L3JQ Bypass Left Femoral Artery to Lower Extremity Artery with Synthetic Substitute, Percutaneous Approach (ICD-10-PCS; 2022-05-12)
PROC: B31N1ZZ Fluoroscopy of Other Upper Arteries using Low Osmolar Contrast (ICD-10-PCS; 2022-05-12)
PROC: 30233N1 Transfusion of Nonautologous Red Blood Cells into Peripheral Vein, Percutaneous Approach (ICD-10-PCS; 2022-05-12)
PROC: 02Q Heart and Great Vessels, Repair (ICD-10-PCS; principal; 2022-05-12 10:46)
PROC: 04L Lower Arteries, Occlusion (ICD-10-PCS; 2022-05-14)
PROC: B31N1ZZ Fluoroscopy of Other Upper Arteries using Low Osmolar Contrast (ICD-10-PCS; 2022-05-14)
DX: I71.33 Infrarenal abdominal aortic aneurysm, ruptured (principal); I63.9 Cerebral infarction, unspecified; K72.00 Acute and subacute hepatic failure without coma; R57.1 Hypovolemic shock; J18.9 Pneumonia, unspecified organism; D62 Acute posthemorrhagic anemia; N17.9 Acute kidney failure, unspecified; R18.8 Other ascites; E78.5 Hyperlipidemia, unspecified; I10 Essential (primary) hypertension; I72.3 Aneurysm of iliac artery; E11.65 Type 2 diabetes mellitus with hyperglycemia; L89.152 Pressure ulcer of sacral region, stage 2; G47.33 Obstructive sleep apnea (adult) (pediatric); F32.A Depression, unspecified; E78.00 Pure hypercholesterolemia, unspecified; I99.9 Unspecified disorder of circulatory system; K52.9 Noninfective gastroenteritis and colitis, unspecified; E87.6 Hypokalemia; J98.4 Other disorders of lung; R06.89 Other abnormalities of breathing; E66.01 Morbid (severe) obesity due to excess calories; Z68.35 Body mass index [BMI] 35.0-35.9, adult; Z87.891 Personal history of nicotine dependence; Z79.02 Long term (current) use of antithrombotics/antiplatelets; Z79.4 Long term (current) use of insulin; Z79.82 Long term (current) use of aspirin; Z79.899 Other long term (current) drug therapy
CPT/HCPCS: 34704; 34812; 36245; 36246; 36415; 37242; 70450; 71045; 74176; 75635; 75710; 76770; 80048; 80053; 80061; 81001; 82435; 82436; 82550; 82570; 82728; 82803; 82947; 82948; 83540; 83550; 83605; 83735; 83935; 84100; 84132; 84133; 84295; 84300; 85014; 85018; 85025; 85027; 85347; 85610; 85730; 86160; 86850; 86900; 86901; 86922; 86923; 87040; 87071; 87077; 87088; 87186; 87205; 87324; 92610; 93005; 93306; 93925; 93970; 94002; 94003; 94640; 94660; 97039; 99156; 99157; A4344; C1725; C1751; C1768; C1769; C1887; C1894; C9113; G0378; J0330; J0360; J0610; J0690; J0692; J1644; J1815; J1940; J2175; J2250; J2270; J2405; J2543; J2704; J2720; J3010; J3370; J3475; J3480; J3490; J7030; J7040; P9016; P9045; Q9967

== ENCOUNTER → 2024-06-18 | Outpatient (CLI) | payer MEDICARE ==
[~2024-06-18] MED LIST changes: +IOHEXOL 350 MG/ML 100ML INFUS..BTL IV ONE; +IOHEXOL-350 50ML VIAL IV ONE; -KETAMINE HCL 100 MG/ML 5ML VIAL IJ ONE
--- NOTE | 2024-06-18 16:03 | HMCIMG ---
CT ANGIO ABD AORTA W RUNOFF REASON: AAA COMPARISON: 06/23/2023 TECHNIQUE: Images are obtained from lung bases through the symphysis pubis before and after IV contrast, 150 cc Omnipaque 350. Images of the ankle. Through both lower extremities. 2-D and 3-D reconstruction images were performed. FINDINGS: There is an aortic stent graft in place. Renal and mesenteric artery origins are widely patent. There is a samish aortic aneurysm measuring 3.3 x 3.9 cm, this is thrombosed, there is no evidence of endoleak .Left limb of the aortobiiliac graft is widely patent. 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 There is reconstitution of the distal portion of the right common iliac artery both common femoral arteries are patent. There is also a patent femoral to femoral graft. Right leg runoff shows a patent superficial femoral and popliteal artery. Trifurcation vessels are intact. There is three-vessel runoff to the ankle. There is posterior tibial runoff to the foot. The dorsalis pedis artery wasn't not well visualized on the current exam, this may be due to bolus timing. Right leg also shows patent to superficial femoral and popliteal arteries. There is three-vessel runoff to the ankle. Posterior tibial runoff is visible to the foot, the dorsalis pedis artery is not well visualized and may be occluded. There are no significant nonvascular findings. IMPRESSION: 1. Exam is not significantly changed compared to previous study 08/23/2022. 2. Aortic stent graft remains in place, samish aortic aneurysm is occluded with no endoleak. 3. 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 4. There are normal bilateral runoff to the ankle, with three-vessel runoff to the ankle, posterior tibial is visible to the feet on both sides, the dorsalis pedis artery as not well seen on either foot.
== END | disposition home or self-care (01) ==
LOC: RAH 11:04
PROVIDERS: ATTEND Internal Medicine Cardiovascular Disease
DX: I70.201 Unspecified atherosclerosis of native arteries of extremities, right leg (principal); I71.40 Abdominal aortic aneurysm, without rupture, unspecified; Z95.818 Presence of other cardiac implants and grafts
CPT/HCPCS: 75635; Q9967 ×2